=== PATIENT | female | born 1985 | race Caucasian/White ===

== ENCOUNTER 2017-09-26 14:11 | Emergency (ER) | payer SELFPAY ==
[~2017-09-26] VITALS: Ht 167.6 cm; Wt 98.9 kg
[~2017-09-26 14:11] MED LIST: BELVIQ10 MG PO; BIRTH CONTROL PO; KEFLEX500 MG PO; LEXAPRO10 MG PO; NORCO 5-325 TA1 EACH PO; ONDANSETRON ODT8 MG PO; PERCOCET 5-3251 EACH PO; PHENTERMINE HCL30 MG PO; PNV PRENATAL P1 EACH PO; PROZAC10 MG PO; PROZAC20 MG PO; RASPBERRY KETONE PO; SEROQUEL50 MG PO; XANAX0.25 MG PO
[2017-09-26] MEDS ORDERED: BACLOFEN10 MG PO (15:48)
[2017-09-26] MEDS ORDERED: METHYLPREDNISOLO4 M1 PO (15:48)
== END 2017-09-26 16:13 | disposition home or self-care (01) ==
LOC: ED 14:11
DX: S39.012A Strain of muscle, fascia and tendon of lower back, initial encounter (principal); Z85.41 Personal history of malignant neoplasm of cervix uteri; X50.9XXA Other and unspecified overexertion or strenuous movements or postures, initial encounter; Y99.0 Civilian activity done for income or pay
CPT/HCPCS: 81001; 99283

== ENCOUNTER 2018-05-06 16:22 | Emergency (ER) | payer OTHER ==
[~2018-05-06] VITALS: Ht 162.6 cm; Wt 97.5 kg
[~2018-05-06 16:22] MED LIST changes: +BACLOFEN10 MG PO; +CIPRO250 MG PO; +METHYLPREDNISOLO4 M1 PO
== END 2018-05-06 18:10 | disposition home or self-care (01) ==
LOC: ED 16:22
DX: N93.8 Other specified abnormal uterine and vaginal bleeding (principal); F17.200 Nicotine dependence, unspecified, uncomplicated
CPT/HCPCS: 36415; 81001; 84703; 85025; 99284

== ENCOUNTER 2019-08-23 21:12 | Inpatient (IN) | payer OTHER ==
[~2019-08-23] VITALS: Ht 162.6 cm; Wt 98.2 kg
--- NOTE | 2019-08-24 00:23 | NUR ---
0009 - PT ADMITTED FROM ED VIA STRETCHER, ACOMAPNIED BY FAMILY. PT ALERT AND ORIENTED, WALKED TO BR, VOIDED, TOLERATED WELL. COOP WITH ADMIT ASSESSMENT AND QUESTIONS. ORIENTED TO ROOM AND HOSP PROCEDURES. AWARE OF NPO STATUS.
--- NOTE | 2019-08-24 01:22 | NUR ---
AWAKE, WATCHING TV VIA PHONE, FAMILY AT BEDSIDE, DENIES N/V OR NEED FOR PAIN MED AT THIS TIME. IVF INFUSING, CALL LIGHT AT BEDSIE, AWARE OF NPO STATUS
--- NOTE | 2019-08-24 04:49 | NUR ---
medicated with Dilaudid 0.5mg IV c/o 05/26 abd pain. Up to br with minimum of help, voided large amounts of qs yellow urine. Back to bed, coop with assessment and vitals. IVF infusing, NPO. Call light at bedside
--- NOTE | 2019-08-24 05:34 | NUR ---
PT HAS BEEN MEDICATED WITH DILAUDI 0.5MG IV X1 SINCE ADMIT. WITH GOOD PAIN RELIEF. UP TO BR WITH MINIMUM OF ASSIST, VOIDING QS URINE. NPO FOR AM PROCEDURE TOLERATING WELL. ABD TENDER, LEXII, IVF INFUSING W/O PROBLEMS, NO C/O ADVERSE REACTION TO IV ABX. COOPERATIVE
--- NOTE | 2019-08-24 06:37 | NUR ---
DR TAYLOR IN ROOM ASSESSING PT, SURGERY CONSENT SIGNED AND COMPLETED. WENT BACK TO SLEEP. NO FURTHER C/O ABD PAIN OR N/V
--- NOTE | 2019-08-24 07:30 | NUR ---
RECIEVED BEDSIDE REPORT FROM JUAN WILDE. PT SLEEPING AT THIS TIME. IVF RUNNING PER ORDER. PT WILL GO TO OR LATER TODAY.
--- NOTE | 2019-08-24 07:54 | NUR ---
PRE-PROCEDURE CHECKLIST COMPLETE. GAVE WIPES TO PT AND SPOUSE, WITH MAP AND INSTRUCTIONS. PT VERBALIZED UNDERSTANDING. LR WITH STRAIGHT TUBING HANGING.
--- NOTE | 2019-08-24 08:10 | CONS ---
[facility] [address], [place] [address] Signed DATE OF CONSULTATION: 08/24/2019 CHIEF COMPLAINT: Generalized and right lower quadrant abdominal pain. HISTORY OF PRESENT ILLNESS: Adrian is a 34-year-old female who was in her usual state of health. She woke up with generalized pain in her abdomen. She had nausea, anorexia, and constipation. She tried to go to work. It seemed to be getting worse. She finally came to the emergency room for evaluation. She seemed to be diffusely tender but more so in the right lower quadrant. White count was elevated. Beta-hCG was negative given her previous tubal ligation. She had a CT scan of the abdomen and pelvis performed. She has a thickened inflamed appendix with some mild periappendiceal inflammation. It also appears that she has a small umbilical/trocar site incisional hernia. I was asked to admit her as a general surgeon. She has been given Rocephin and Flagyl overnight along with pain control and IV fluids. In general, she is doing well and slept through the night until her pain medication wore off. PAST MEDICAL HISTORY: Cervical cancer and right upper extremity fracture in three places. PAST SURGICAL HISTORY: Tonsillectomy, laparoscopic bilateral tubal ligation, and uterine ablation. SOCIAL HISTORY: She does smoke cigarettes and marijuana. She does not drink. She is . 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 She prefers the [facility]. Kerri Valle is her primary care provider. Dr. Shyanne Cruz is her employee wellness/fitness coordinator. FAMILY HISTORY: Mom apparently has breast cancer. Dad had a small heart attack and has diabetes. REVIEW OF SYSTEMS: She had 10 systems reviewed. She told me about her arm fracture when she was a kid. She had a cast, no metal. ALLERGIES: None. MEDICATIONS: None. PHYSICAL EXAMINATION: Electronically Signed By: DONNA TAYLOR MD 08/24/19 0810 PATIENT NAME: ADRIAN BARTON CONSULTATION DATE OF : [birth year] REPORT #: [id number] PHYSICIAN: DONNA TAYLOR MD PCP: KERRI VALLE PA-C REPORT IS CONFIDENTIAL AND NOT TO BE RELEASED WITHOUT AUTHORIZATION [facility] [address], [place] [address] Signed VITAL SIGNS: Her blood pressure is 100/55, heart rate 60, respiratory rate 16, temperature is 97.5. She is 97% on room air. She is 5 feet 4 inches at 98 kg. GENERAL: Adrian is a 34-year-old female, lying supine in her hospital bed. She is not systemically ill or toxic, but she is a little uncomfortable moving around with her abdominal pain. LUNGS: Clear to auscultation bilaterally. HEART: Regular rate and rhythm without murmur. ABDOMEN: Obese, but soft. She seems to complain of diffuse tenderness, but on repeat exam, it seems to be mostly in the right lower quadrant. LABORATORY DATA: Her white blood cell count is 17.9, neutrophils 80, hemoglobin 14, BUN 9, creatinine 0.69. Liver function tests are negative. Albumin is 4.6. Beta-hCG is negative. Her urinalysis showed some ketones. RADIOGRAPHIC STUDIES: A CT scan of the abdomen and pelvis is reviewed along with the report. She clearly has a mildly thickened inflamed appendix in the right lower quadrant and what looks like a small umbilical/trocar site incisional hernia. ASSESSMENT AND PLAN: Adrian is a 34-year-old obese female who presents with acute appendicitis. She has been admitted on IV fluids and pain control along with antibiotics. I have reviewed all this with Adrian in detail. We have reviewed the location of function of the appendix. We have discussed laparoscopic versus open appendectomy. She understands expected intraop and postop course. We did review the risks including, but not limited to bleeding, infection, scarring, change in contour of the skin, damage to bowel, appendiceal stump leak, postoperative intraabdominal abscess, incisional hernias and other unforeseen comorbidities. She has expressed understanding and would like to proceed with surgery. We are going to have her added on to our caseload later this morning. Donna Taylor MD ALB/MODL /[id number] cc: JEISON Cesar Electronically Signed By: DONNA TAYLOR MD 08/24/19 0810 PATIENT NAME: ADRIAN BARTON CONSULTATION DATE OF : 87 REPORT #: [id number] PHYSICIAN: DONNA TAYLOR MD PCP: KERRI VALLE PA-C REPORT IS CONFIDENTIAL AND NOT TO BE RELEASED WITHOUT AUTHORIZATION [address] [address] Signed MD Donna Talley MD Copies: SHYANNE CRUZ MD, ANDREW L MD ~ Electronically Signed By: DONNA TAYLOR MD 08/24/19 0810 PATIENT NAME: ADRIAN BARTON CONSULTATION DATE OF : 86 REPORT #: [id number] PHYSICIAN: DONNA TAYLOR MD PCP: KERRI VALLE PA-C REPORT IS CONFIDENTIAL AND NOT TO BE RELEASED WITHOUT AUTHORIZATION
--- NOTE | 2019-08-24 08:48 | NUR ---
PT IS OFF THE FLOOR TO SURGERY.
--- NOTE | 2019-08-24 09:15 | NUR ---
PATIENT IN OR. WILL RETURN ANOTHER TIME.
--- NOTE | 2019-08-24 10:35 | NUR ---
08/24/19 1035 Haley Lloyd 1023 PATIENT ARRIVES TO PACU SLEEPING. AWAKE WITH VERBAL STIMULI. ASKS QUESTIONS APPROPRIATLY, THEN BACK TO SLEEP. RESP EVEN AND UNLABORED, MASK AT 7 LITERS. 1025 PATIENT AWAKE OFF/ON. RESP EVEN AND UNLABORED, OXYGEN OFF, ROOM AIR SATS >90%. OCCASIONALLY DESATS BUT IMPROVES WHEN PATIENT REMINDED TO DEEP BREATHE AND COUGH. 1030 PATIENT RESTING QUIETLY WITH EYES CLOSED, RESPONDS TO VERBAL STIMULI. RESP EVEN AND UNLABORED, ROOM AIR SATS >90%. NEEDS OCCASIONAL REMINDER TO DEEP BREATHE AND COUGH. DR TAYLOR AT BEDSIDE TALKING WITH PATIENT.
--- NOTE | 2019-08-24 11:35 | NUR ---
PT RETURNED FROM SURGERY, VERY PAINFUL WITH LOW THRESHHOLD FOR PAIN. CPOX APPLIED, VITALS TAKEN, PERSONAL BELONGINGS PLACED IN REACH. PT ASKED FOR DENTURE CREAM AND HER DENTURES, GIVEN. 3 LAP SITES, C/D/I. INSTRUCTED PT ON IMPORTANCE OF BRACING WHEN MOVING. SCD IN PLACE.
--- NOTE | 2019-08-24 12:27 | NUR ---
PT TAKEN TO SURGERY. WILL FOLLOW NEEDED
--- NOTE | 2019-08-24 14:19 | NUR ---
PT SLEEPING POST OP. REPORTS PAIN IS BETTER CONTROLED AT REST, WITH MOVEMENT PT REPORTS UNBEARABLE PAIN. IVF AND IV ABX RUNNING PER ORDER. TOLERATING CLEAR LIQUIDS WELL.
--- NOTE | 2019-08-24 14:35 | NUR ---
THE CHARGE NURSE AND I GOT PATIENT UP TO BEDSIDE COMMODE. THAN AFTER THAT SHE IS SITTING UP IN HER CHAIR.
--- NOTE | 2019-08-24 18:32 | NUR ---
BROUGHT PATIENT A POPSICLE.
--- NOTE | 2019-08-24 20:18 | NUR ---
medicated with Toradol 30mg IV c/o 05/26 abd pain. lap dressing over abd in place,R upper with old drainage. LEXII, passing gas, on clear liquids tolerating well, no n/v. moves and repositions self in bed.IVF infusing, family in room
--- NOTE | 2019-08-24 20:54 | NUR ---
CHIEF STRATEGY OFFICER ROUNDING COMPLETE. PT RESTING IN BED WITH AT BEDSIDE. QUESTIONS REGARDING DIET ADVANCEMENT, COUGHING AND DEEP BREATHING, OPEN VS LAPROSCOPIC PROCEDURE, SPLINTING WITH MOVEMENT, ANSWERED PT DENIES FURTHER QUESTIONS OR CONCERNS AT THIS TIME. CALL LIGHT WITHIN REACH. REMAINS AT BEDSIDE.
--- NOTE | 2019-08-24 21:51 | NUR ---
Pt c/o mild dry heaving, medicatd with Zofran 8mg IV, c/o abd pain, medicated with dilaudid 1mg IV. In bed, tolerating clear liquids scds in place. passing gas. family in room
--- NOTE | 2019-08-24 23:22 | NUR ---
AWAKE, WATCHING TV WITH FAMILY, NO FURTHER C/O N/V OR ABD PAIN. IVF INFUSING, CALL LIGHT AT BEDSIDE
--- NOTE | 2019-08-25 01:42 | NUR ---
PT MEDICATED WITH 2 NORCO PER 8 ABD PAIN. ABD LAP DRESSING. TOLERATING FLUIDS WELL, NO FURTHER C/O N/V. IVF INFUSING. CALL LIGHT AT BEDSIDE
--- NOTE | 2019-08-25 03:38 | NUR ---
Patient is resting , has been restless earlier, is in the room with her, 7 up was given and fresh water, call light in reach no othere needs at this time.
--- NOTE | 2019-08-25 04:59 | NUR ---
PT CURRENTLY RESTING, EYES CLOSED, HAS BEEN AWAKE MOST OF THIS SHIFT, C/O ABD PAIN, HAS ABD LAP SITES . MEDICATED WITH TORADOL 30MG X1, DIALUDID 1MG X1, 2 NORCOS 10/325 X1 WITH GOOD TO FAIR PAIN RELIEF, AND ZOFRAN 8MG X1 PER C/O DRY HEAVING, NO N/V THIS SHIFT. STATES PASSING GAS, TOLERATING CLEAR FLUIDS WELL. PT ENCOURAGED TO WALK IN AM. IVF INFUSING W/O PROBLEMS. UP TO BR WITH MINIMUM OF HELP, VOIDING QS. NO BM
--- NOTE | 2019-08-25 06:17 | OR ---
[facility] [address], [place] [address] Signed DATE OF OPERATION: 08/24/2019 SURGEON: Donna Taylor MD PREOPERATIVE DIAGNOSIS: Acute appendicitis. POSTOPERATIVE DIAGNOSIS: Acute suppurative appendicitis. PROCEDURE: Laparoscopic appendectomy. ESTIMATED BLOOD LOSS: Minimal. INDICATIONS: Adrian is a 34-year-old female, who had a 1-day history of diffuse abdominal pain but seemingly more intense in the right lower quadrant. She had nausea and anorexia and constipation. She tried to go to work, but the pain was increasing. She came to the emergency room for evaluation. She seemed to be tender mostly in the right lower quadrant, but also throughout the abdomen. White count was elevated. Beta-hCG was negative. CT scan of the abdomen and pelvis showed a thickened inflamed appendix with brent-appendiceal inflammation. We admitted overnight and started her on IV antibiotics and IV fluids and pain control. I met with Adrian and her this morning. Her was sleeping throughout the conversation. I explained to Adrian the above findings. We reviewed the location of function of the appendix. We reviewed laparoscopic versus open appendectomy. She also understands expected intraop and postop course. We did review the risks including, but not limited to bleeding, infection, scarring, change in contour of the skin, damage to bowel, appendiceal stump leak, postoperative intra-abdominal abscess, incisional hernias, and other unforeseen comorbidities. She had expressed understanding and wished to proceed. PROCEDURE NOTE: Adrian was taken into our operating room and placed in the supine position under general endotracheal tube anesthesia. She was already on preoperative antibiotics along with subcutaneous heparin. SCDs were utilized. A Ching catheter was inserted with return of clear yellow urine without difficulty. She was then prepped and draped in the usual sterile fashion. All trocars were then placed in her usual positions under direct visualization of camera without difficulty. Pictures were taken throughout for Electronically Signed By: DONNA TAYLOR MD 08/25/19 0617 PATIENT NAME: ADRIAN BARTON OPERATIVE REPORT DATE OF : 87 REPORT #: [id number] PHYSICIAN: DONNA TAYLOR MD PCP: KERRI MO PA-C REPORT IS CONFIDENTIAL AND NOT TO BE RELEASED WITHOUT AUTHORIZATION [facility] [address], [place] [address] Signed photodocumentation. We could easily see the inflammatory changes in the mid right gutter with some fat adherent to the abdominal wall and the cecum underneath along with the appendix underneath. She had reactive fluid in the right gutter and down the pelvis. Her uterus shows a little larger than one would expect for someone at age 34. After this, we took down the adhesions of the fat to the abdominal wall, so we could roll the cecum over along with the appendix. The base of the appendix was cleared off with the help of cautery and then divided from the cecum with the help of a linear stapler. The mesoappendix was then divided with a vascular load on the linear stapler. All hemostasis was excellent on the staple lines. The appendix was placed into an EndoCatch bag and taken out through the right subcostal trocar site. After this, we used our laparoscopic suturing device to pass 0 Vicryl suture on either side of the fascia of the right subcostal trocar site. This was tied down to close this fascia primarily. After this, all the gas was allowed to escape and two remaining trocars were removed. We closed the fascia of the infraumbilical trocar site with interrupted [id number] and simple 0 Vicryl sutures. Local anesthetic was copiously injected into all trocar sites. Each trocar site was irrigated and suctioned out until clear. We closed the dermis of each trocar site with interrupted 3-0 subcuticular Monocryl sutures. We used a fast-absorbing 5-0 catgut suture to close the skin of the infraumbilical incision. Dry gauze and tape were then applied to all three incisions. Adrian was then awakened from her anesthesia, extubated in the OR, and taken to recovery room in stable condition. Donna Taylor MD ALB/MODL /[id number] cc: MD Lisset Batres MD Copies: DONNA TAYLOR MD Electronically Signed By: DONNA TAYLOR MD 08/25/19 0617 PATIENT NAME: ADRIAN BARTON OPERATIVE REPORT DATE OF : 87 REPORT #: [id number] PHYSICIAN: DONNA TAYLOR MD PCP: KERRI MO PA-C REPORT IS CONFIDENTIAL AND NOT TO BE RELEASED WITHOUT AUTHORIZATION [address] [address] Signed LISSET BLAKE MD ~ Electronically Signed By: DONNA TAYLOR MD 08/25/19 0617 PATIENT NAME: ADRIAN BARTON OPERATIVE REPORT DATE OF : [birth year] REPORT #: [id number] PHYSICIAN: DONNA TAYLOR MD PCP: KERRI MO PA-C REPORT IS CONFIDENTIAL AND NOT TO BE RELEASED WITHOUT AUTHORIZATION
--- NOTE | 2019-08-25 06:39 | NUR ---
PT UP TO BR, VOIDED, PASSING GAS, BACK TO BED, TOLERATED WELL. 1PA MEDICATED WITH 2 NORCO 10/325 PO PER 810 ABD PAIN. TOLERATING FLUIDS WELL. IVF INFUSING W/O PROBLEMS, SCDS OFF AT THIS TIME AT HER REQUESTS. NO N/V
--- NOTE | 2019-08-25 07:28 | NUR ---
RECIEVED BEDSIDE REPORT FROM JUAN WILDE. PT IS AWAKE AND ALERT IN BED. PT APPEARS TO BE MORE ALERT, INTERACTIVE. PT IS PASSING GAS, BOWEL TONES ACTIVE. PT AGREES TO PLAN OF CARE.
--- NOTE | 2019-08-25 16:42 | NUR ---
SO FAR TODAY SHE HAS WALKED 4 LAPS TOTAL AROUND MED SURG. I AM GOING TO GO IN AND ASK HER IF SHE WOULD LIKE TO TAKE A SHOWER.
--- NOTE | 2019-08-25 20:20 | NUR ---
SQL APPLICATION DEVELOPER ROUNDING NOTE. PT RESTING IN BED, VISITNG WITH FAMILY AT BEDSIDE. PT DENIES QUESTIONS OR CONCERNS, WHITE BOARD UPDATED. CALL LIGHT WITHIN REACH.
--- NOTE | 2019-08-25 21:39 | NUR ---
pt took a ashower, back to bed
--- NOTE | 2019-08-25 22:11 | NUR ---
No c/o pain, ambulated in room, had a shower, tolerated well. Back in bed, 3 abd dressings changed, incision well approx. umbilical area incision with sutures inplace, intact. dry, pink edges, passing gas, no bm, voiding small amount light tea colored urine. IVF infusing w/o problems. no n/v. SCDS at bedside, declines at this time. Tolerating diet well, call light at bedside family in room
--- NOTE | 2019-08-25 23:31 | NUR ---
Resting, eyes closed, no resp distress, room air, IVF infusing. scds off at her request, had been walking in rom earlier. CAll light at bedside, no N/V. family in room
--- NOTE | 2019-08-25 23:46 | NUR ---
pt c/o 05/26 abd pain, eating snack chips and pop, no N/V. Medicated with 2 Sabael. Call light at bedside, on room air, family at bedside
--- NOTE | 2019-08-26 02:00 | NUR ---
Pt resting, eyes closed, IVF infusing, call light at bedside
--- NOTE | 2019-08-26 05:40 | NUR ---
PT CURRENTLY RESTING, EYES CLOSED. [address], PT SHOWERD LAST NIGHT, ABD DRESSINGS WERE CHANGED. MEDICATED WITH NORCO 1 TIME. EFFECTIVE, NO C/O NA/F, TOLERATING REG DIET WELL, SCDS OFF AT THIS TIME AT HER REQUEST, HAS WALKED IN ROOM. CALL LIGHT AT BEDSIDE
--- NOTE | 2019-08-26 07:04 | NUR ---
RECIEVED REPORT FROM JUAN WILDE. PT HAD A GOOD NIGHT, SLEPT WELL. UP TO SHOWER. IV S/L PER PT REQUEST, VOIDING WELL, TAKING PO FLUIDS WELL. PAIN WELL CONTROLLED.
--- NOTE | 2019-08-26 07:47 | NUR ---
REMOVED DRESSINGS FROM WOUNDS, WOUNDS ARE C/D/I.
[2019-08-26] MEDS ORDERED: NORCO 5-325 TA1 EACH PO (07:48)
--- NOTE | 2019-08-26 10:46 | NUR ---
DISCHARGE TEACHING COMPLETE. DISCUSSED FOLLOW UP, WHEN TO CALL THE DR, ACTVITY RESTRICTION, DIET, MEDICATIONS. PT VERBALIZED UNDERSTANDING. REMOVED IV, CATH INTACT. ALL PT BELONGINGS REMOVED FROM ROOM. MOTHER ASSISSTED PT IN PACKING AND LEAVING ROOM.
--- NOTE | 2019-08-27 06:20 | DS ---
[facility] [address], [place] [address] Signed ADMISSION DATE: 08/24/2019 DISCHARGE DATE: 08/26/2019 FINAL DIAGNOSIS: Acute suppurative appendicitis. PROCEDURE: Laparoscopic appendectomy. HISTORY OF PRESENT ILLNESS: Adrian is a 34-year-old female, who came with generalized abdominal pain with nausea, anorexia, and constipation. It seemed like most of her pain was in the right lower quadrant. White count was elevated at 17.9. Beta-hCG was negative. CT scan of the abdomen and pelvis showed a thickened inflamed appendix. There was concern about maybe a possible umbilical hernia. I was asked to admit her as a general surgeon on-call. HOSPITAL COURSE: Adrian was admitted as above and started on her Rocephin and Flagyl and then later cefepime and Flagyl. She was taken to the operating room that very next morning for her uncomplicated laparoscopic appendectomy. She had acute suppurative appendicitis. I did not notice a specific hiatal hernia. Her intra and postop course were unremarkable. She is tolerating a regular diet and her activities of daily living at this point. She has had to have a bowel movement. I explained to Adrian she can certainly purchase any laxative over the counter and it would be fine. I have also asked her to wean off the narcotics and simply use Tylenol, ibuprofen, or Aleve. Her incisions are all healing nicely without any local signs or symptoms of infection. DISCHARGE PLANS AND MEDICATIONS: Adrian is going to be discharged home with a prescription for Grant 10/325 one tablet p.o. q.6 hours p.r.n. for severe postoperative pain. We will dispense #25 tablets with no refills. She can use Tylenol, ibuprofen, or Aleve for [id number] postoperative pain. She is always welcome to use some ice p.r.n. for pain. She can continue her regular diet at home. She can resume her activities of daily living including walking up and down stairs and showering-bathing as usual. She is not to do any heavy pushing, pulling, or lifting over 25 pounds for a month, 50 pounds 2nd month, and then no restrictions. She is going to return to work in 1 week. I will have her in the office in the next 7 to 10 days for followup. She has expressed understanding and agrees with above plan. I have reviewed this with her, her , and her nurse. Electronically Signed By: DONNA TAYLOR MD 08/27/19 0620 PATIENT NAME: ADRIAN BARTON DISCHARGE SUMMARY DATE OF : 87 REPORT #: [id number] PHYSICIAN: DONNA TAYLOR MD PCP: KERRI MO PA-C REPORT IS CONFIDENTIAL AND NOT TO BE RELEASED WITHOUT AUTHORIZATION [address] [address] Signed MD LI Marshall/EUGENIAL /[id number] cc: AngyMD Shyanne Jennings MD Copies: DONNA TAYLOR MD, PATRICIA J MD ~ Electronically Signed By: DONNA TAYLOR MD 08/27/19 0620 PATIENT NAME: ADRIAN BARTON DISCHARGE SUMMARY DATE OF : 87 REPORT #: [id number] PHYSICIAN: DONNA TAYLOR MD PCP: KERRI MO PA-C REPORT IS CONFIDENTIAL AND NOT TO BE RELEASED WITHOUT AUTHORIZATION
--- NOTE | 2019-08-27 12:46 | PATH ---
[facility] [address] [facility] [place] [address] Signed SPECIMEN(S): A APPENDIX SPECIMEN SOURCE: A. APPENDIX CLINICAL HISTORY: Acute appendicitis. FINAL PATHOLOGIC DIAGNOSIS: Appendix, appendectomy: - Acute appendicitis. NAL:cml:C2NR MICROSCOPIC EXAMINATION: Histologic sections of all submitted blocks are examined by light microscopy. These findings, together with the gross examination, support the pathologic diagnosis. GROSS DESCRIPTION: The specimen, labeled "LK, appendix," is received in formalin and consists of Specimen: Appendix with mesoappendix. Dimensions: 4.8 cm in length by 1.1 cm in diameter with a 3.4 cm yellow fatty mesoappendix. Serosa: Rock with adhesions. Perforation: Not grossly identified. Inking: Staple line is inked black. Mucosa: Rock-red with folds. Fecalith: Not grossly identified. Additional: None. Plastics Engineering Teacher sections are submitted in cassette (A1). AM (under the direct supervision of a pathologist) The Gross Description was prepared using a voice recognition system. The report was reviewed for accuracy; however, sound-alike word errors, addition and/or deletions may occur. If there is any question about this report, please contact Client Services. PERFORMING LABORATORY: The technical component was performed by [facility], [address] [place] [id number] (Tire Builder Operator: Gloria Kaur MD; CLIA# [id number]). [facility] [address] [facility]. 107, PATIENT NAME: ADRIAN BARTON PATHOLOGY DATE OF : [birth year] REPORT #: [id number] PHYSICIAN: [facility] PCP: KERRI MO PA-C REPORT IS CONFIDENTIAL AND NOT TO BE RELEASED WITHOUT AUTHORIZATION [address] [place], [place] [address] Signed Naeem Peraza [id number] (Tire Builder Operator: Sal Dan MD; CLIA# [id number]). Diagnostician: Corrie Terry MD Pathologist Electronically Signed 08/27/2019 Copies: ~ PATIENT NAME: ADRIAN BARTON PATHOLOGY DATE OF : [birth year] REPORT #: [id number] PHYSICIAN: [facility] PCP: KERRI MO PA-C REPORT IS CONFIDENTIAL AND NOT TO BE RELEASED WITHOUT AUTHORIZATION
== END 2019-08-26 10:40 | disposition home or self-care (01) | DRG 343 ==
LOC: ED 21:12 → MS 21:13
PROVIDERS: ADMIT Colon & Rectal Surgery
PROC: 0DTJ4ZZ Resection of Appendix, Percutaneous Endoscopic Approach (ICD-10-PCS; principal; 2019-08-24 08:45)
DX: K35.80 Unspecified acute appendicitis (principal); K59.00 Constipation, unspecified; E66.01 Morbid (severe) obesity due to excess calories; F17.210 Nicotine dependence, cigarettes, uncomplicated; Z85.41 Personal history of malignant neoplasm of cervix uteri; Z68.37 Body mass index [BMI] 37.0-37.9, adult
CPT/HCPCS: 00840; 74177; 80053; 81001; 83690; 84703; 85025; 96361; 99285-25; 99406; C9113; J0131; J0330; J0692; J0696; J1100; J1170; J1650; J1885; J2405; J2704; J3010; J7030; J7060; J7121; Q9967